=== PATIENT | female | born 1985 | race Caucasian/White ===

== ENCOUNTER → 2017-03-27 | Outpatient (CLI) | payer OTHER ==
--- NOTE | 2017-03-27 13:57 | DIAGNOSTIC IMAGING REPORT ---
LEFT THYROID NODULE ULTRASOUND-GUIDED FINE-NEEDLE ASPIRATION BIOPSY CLINICAL HISTORY: LEFT THYROID NODULE COMPARISON STUDY: Outside ultrasound dated 03/03/2017 FINDINGS: The risks of the procedure were explained the patient and informed consent was obtained. Patient was prepped in sterile fashion. The skin was anesthetized 1% lidocaine. Under ultrasound guidance, the patient's dominant densely calcified left lobe thyroid nodule was sampled x3 with 25-gauge needle. Initial pathologic review indicates satisfactory material for diagnosis. IMPRESSION: Successful ultrasound-guided fine-needle aspiration biopsy of a densely calcified left lobe thyroid nodule Electronically signed by: Americo Simon M.D. 03/27/2017 1:56 PM Dictated Date/Time: 03/27/2017 1:55 PM
== END | disposition home or self-care (01) ==
LOC: C.ULTR 12:50
PROVIDERS: ATTEND Family Medicine
DX: E04.1 Nontoxic single thyroid nodule (principal); R89.6 Abnormal cytological findings in specimens from other organs, systems and tissues